=== PATIENT | male | born 1960 | race Caucasian/White ===

== ENCOUNTER → 2016-12-19 | Outpatient (CLI) | payer OTHER ==
[2016-12-19 17:02] LABS: BASO % 0.6 %; BASO ABS # 0.04 K/uL (0-0.2); COMPLETE YES; EOS % 3.7 %; HEMATOCRIT 42.6 % (42-52); IG% 0.1 %; LYMPH % 19.8 %; LYMPH ABS # 1.43 K/uL (1.2-3.4); MEAN CELL VOLUME 89.5 fL (80-100); MEAN CORPUSCULAR HEMOGLOBIN 30.5 pg (25-34); MONO % 8.7 %; NEUT % 67.1 %; PLATELET COUNT 235 K/uL (130-400); RED BLOOD COUNT 4.76 M/uL (4.7-6.1); WHITE BLOOD COUNT 7.24 K/uL (4.8-10.8)
[2016-12-19 17:28] LABS: ALT/SGPT 35 U/L (12-78); AST/SGOT 15 U/L (15-37); BLOOD UREA NITROGEN 16 mg/dl (7-18); BUN/CREATININE RATIO 18.6 (10-20); CALCIUM 8.5 mg/dl (8.5-10.1); CARBON DIOXIDE 28 mmol/L (21-32); CHLORIDE 107 mmol/L (98-107); CREATININE 0.85 mg/dl (0.60-1.40); GLUCOSE 98 mg/dl (70-99); POTASSIUM 4.7 mmol/L (3.5-5.1); SODIUM 141 mmol/L (136-145)
[2016-12-19 17:33] LABS: ALB/GLOB RATIO 1.1 (0.9-2); ALKALINE PHOSPHATASE 56 U/L (45-117); CHOLESTEROL 142 mg/dl (0-200); HDL CHOLESTEROL 47 mg/dl; LDL CHOLESTEROL CALCULATED 32 mg/dl; PROSTATE SPECIFIC ANTIGEN 0.147 ng/ml (0.000-4.000); TRIGLYCERIDES 313 mg/dl (0-150); VERY LOW DENSITY LIPOPROT CALC 63 mg/dl
[2016-12-19 17:48] LABS: RATIO 11.6 mcg/mg (0-30.0)
[2016-12-20 06:23] LABS: ESTIMATED AVERAGE GLUCOSE 108 mg/dl; HA1C FLAG Normal (Normal)
== END | disposition home or self-care (01) ==
LOC: C.LABBC 14:55
PROVIDERS: ATTEND Family Medicine
DX: E11.9 Type 2 diabetes mellitus without complications (principal); I10 Essential (primary) hypertension; N40.1 Benign prostatic hyperplasia with lower urinary tract symptoms; E78.5 Hyperlipidemia, unspecified; Z11.59 Encounter for screening for other viral diseases

== ENCOUNTER 2017-09-21 19:40 | Emergency (ER) | payer OTHER ==
[~2017-09-21] VITALS: Ht 170.2 cm; Wt 110.0 kg
[2017-09-21 19:52] VITALS: TEMP 36.2; Ht 170.2 cm; Wt 110.0 kg
--- NOTE | 2017-09-21 20:24 | EMERGENCY ROOM VISIT NOTE ---
History Report prepared by Trevor: Dinora Esquivel Under the Supervision of: Dr. Mayo Green M.D. First contact with patient: 19:57 Chief Complaint: RECTAL PAIN Stated Complaint: BUTT PAIN History of Present Illness The patient is a 57 year old male who presents to the Emergency Room with complaints of constant rectal pain beginning 2 days ago. The patient states that he has been having normal bowel movements with some intermittent diarrhea that resolved today. He reports that he has had no blood on the toilet paper. He notes that he is on Coumadin and had a mechanical valve replacement 13 years ago. The patient states that he has no history of hemorrhoids, IBS, Crohn's, and ulcers. He denies any fever, chills, cough, congestion, nausea, and vomiting. He reports that sitting and laying down worsen his pain and he has not slept in 2 days. Source of History: patient Onset: 2 days ago Position: other (rectal) Timing: constant Modifying Factors (Worsening): other (sitting, laying down) Associated Symptoms: + diarrhea, No fevers, No chills, No cough, No nausea, No vomiting Review of Systems See HPI for pertinent positives and negatives. A total of ten systems were reviewed and were otherwise negative. Past Medical & Surgical Medical Problems: (1) Type 2 diabetes mellitus Family History No pertinent family history stated. Social History Smoking Status: Never Smoker Marital Status: Housing Status: lives with family Occupation Status: employed Current/Historical Medications Scheduled Atorvastatin (Lipitor), 40 MG PO HS Dutasteride (Avodart), 0.5 MG PO QPM Lisinopril (Zestril), 5 MG PO DAILY Metformin Hcl (Glucophage), 500 MG PO DAILY Metoprolol Succinate (Toprol Xl), 50 MG PO DAILY Warfarin Sod (Jantoven), 4 MG PO 2XWK Warfarin Sod (Jantoven), 6 MG PO 5 XW Scheduled PRN Acetaminophen (Tylenol), 1,000 MG PO UD PRN for Pain Hydrocortisone Acetate (Topica (Hydrocortisone Acetate), 1 APPLN TOP TID PRN for Pain Nitroglycerin (Intra-Anal) (Rectiv), 1 APPLN RE BID PRN for Pain Allergies Coded Allergies: Aminophylline (Verified Allergy, Unknown, RASH, 09/21/17) Brompheniramine (Verified Allergy, Unknown, bladder spams, 09/21/17) Phenylpropanolamine (Verified Allergy, Unknown, bladder spams, 09/21/17) Physical Exam Vital Signs Date Time Temp Pulse Resp B/P (MAP) Pulse Ox O2 Delivery O2 Flow Rate FiO2 09/21/17 21:50 88 16 118/75 95 Room Air 09/21/17 19:52 36.2 92 16 153/82 95 Room Air Physical Exam GENERAL: Awake, alert, well-appearing, in no distress HENT: Normocephalic, atraumatic. Oropharynx unremarkable. EYES: Normal conjunctiva. Sclera non-icteric. NECK: Supple. No nuchal rigidity. FROM. No JVD. RESPIRATORY: Clear to auscultation. CARDIAC: Regular rate, normal rhythm. Extremities warm and well perfused. Pulses equal. ABDOMEN: Soft, non-distended. No tenderness to palpation. No rebound or guarding. No masses. RECTAL: Non thrombosed external hemorrhoid at the 4oclock position. No fluctuance within the rectum, no stool, no bleeding. MUSCULOSKELETAL: Chest examination reveals no tenderness. The back is symmetrical on inspection without obvious abnormality. There is no CVA tenderness to palpation. No joint edema. LOWER EXTREMITIES: Calves are equal size bilaterally and non-tender. No edema. No discoloration. NEURO: Normal sensorium. No sensory or motor deficits noted. SKIN: No rash or jaundice noted. Medical Decision & Procedures Laboratory Results Test 09/21/17 21:11 09/21/17 21:20 Bedside Prothrombin Time INR 5.3 (0.9-1.1) Prothrombin Time 51.3 SECONDS (9.0-12.0) Prothromb Time International Ratio 4.5 (0.9-1.1) Laboratory results reviewed by al ED Course 1956: The patient was evaluated in room B10. A complete history and physical exam was performed. 2007: I reevaluated the patient. Discussed results and discharge instructions: He verbalized understanding and agreement. The patient is ready for discharge. Medical Decision I reviewed the patient's past medical history, medications, and the nursing notes as described above. The patient's presentation and history were concerning for eternal hemorrhoid, anal fistula, anal fissure. The patient is a 57 y/o gentleman with a pmhx of mechanical AV replacement 2003 on coumadin who presents to the ED with rectal pain, worse with BM per HPI. On arrival the patient is uncomfortable but in NAD, AFVSS. On exam the patient has a non-thrombosed hemorrhoid at the 4 o'clock position. No stool or blood on exam. Will treat with hydrocortisone cream and sitz bath, with ntg paste for pain associated with anal spasm. Plan for pcp f/u. INR check as routine given no recent check and supratherapeutic to 4.5. Patient advised to skip his next dose and recheck with coag clinic tomorrow. Findings and plan for follow-up reviewed with patient. Patient agreeable and d/c'd per discharge instructions. Medication Reconcilliation Current Medication List: was personally reviewed by me Blood Pressure Screening Patient's blood pressure: Elevated blood pressure Blood pressure disposition: Elevated BP felt to be situational Impression Primary Impression: Hemorrhoid Additional Impression: Elevated INR Scribe Attestation The scribe's documentation has been prepared under my direction and personally reviewed by me in its entirety. I confirm that the note above accurately reflects all work, treatment, procedures, and medical decision making performed by me. Departure Information Dispostion Home / Self-Care Prescriptions Hydrocortisone Acetate (Topica (HYDROCORTISONE ACETATE) 1 % Cre 1 APPLN TOP TID Y for Pain, #1 TUBE prn pain/burning associated with hemorrhoid Prov: Mayo Green M.D. 09/21/17 Nitroglycerin (Intra-Anal) (RECTIV) 0.4 % Oin 1 APPLN RE BID Y for Pain, #1 TUBE Apply thinly PRN pain associated with anal spasm. Prov: Mayo Green M.D. 09/21/17 Referrals No Doctor, Assigned (PCP) Patient Instructions ED Hemorrhoids, My [facility], Sitz Bath Additional Instructions Please follow up with your primary care physician in the next 1-3 days for re- evaluation. You have an external hemorrhoid causing your pain. Otherwise, your exam did not show signs of an emergent condition at this time. Sitz bath 3 times daily. Hydrocortisone cream as directed. Rectiv for anal spasm. Your INR was elevated today to 4.5 so you should skip your next coumadin dose and call your coagulation clinic for recheck tomorrow. Return to the emergency department for worsening symptoms as described in the accompanying instructions. Problem Qualifiers
[2017-09-21] MEDS ORDERED: LISI-729 PO (20:58)
[2017-09-21] MEDS ORDERED: DUTA0.5C PO (20:58)
[2017-09-21] MEDS ORDERED: ACET-1256 PO (20:58)
[2017-09-21] MEDS ORDERED: GLC/500 PO (20:58)
[2017-09-21] MEDS ORDERED: METO-217 PO (20:58)
[2017-09-21] MEDS ORDERED: WARF4TAB8 PO (20:58)
[2017-09-21] MEDS ORDERED: ATOR-24 PO (20:58)
[2017-09-21] MEDS ORDERED: WARF6TAB5 PO (20:58)
[2017-09-21 21:50] VITALS: BP 118/75; PULSE 88; O2SAT 95
[2017-09-21 21:53] LABS: INR 4.5 (0.9-1.1); PROTHROMBIN TIME (PATIENT) 51.3 SECONDS (9.0-12.0)
[2017-09-21] MEDS ORDERED: NITR1OIN RE (22:03)
[2017-09-21] MEDS ORDERED: HYDR1CRE TOP (22:03)
== END 2017-09-21 22:19 | disposition home or self-care (01) ==
LOC: C.EDB 19:42
DX: K64.9 Unspecified hemorrhoids (principal); E11.9 Type 2 diabetes mellitus without complications; Z79.01 Long term (current) use of anticoagulants; Z79.84 Long term (current) use of oral hypoglycemic drugs; Z79.899 Other long term (current) drug therapy; Z88.8 Allergy status to other drugs, medicaments and biological substances